=== PATIENT | male | born 1995 ===

== ENCOUNTER 2021-02-06 08:13 | Outpatient (CLI) | payer OTHER | END 2021-02-06 08:18 | disposition home or self-care (01) | LOC: RAD 08:13 | DX: Z00.00 Encounter for general adult medical examination without abnormal findings (principal) ==

== ENCOUNTER 2021-11-06 11:56 | Outpatient (CLI) | payer OTHER | END 2021-11-06 11:57 | disposition home or self-care (01) | LOC: RAD 11:56 | DX: M79.645 Pain in left finger(s) (principal) ==

== ENCOUNTER 2022-02-08 14:06 | Outpatient (CLI) | payer OTHER | END 2022-02-08 14:13 | disposition home or self-care (01) | LOC: RAD 14:06 | DX: Z00.00 Encounter for general adult medical examination without abnormal findings (principal) ==

== ENCOUNTER 2022-06-06 10:43 | Outpatient (CLI) | payer OTHER | END 2022-06-06 11:08 | disposition home or self-care (01) | LOC: RAD 10:43 | DX: M25.552 Pain in left hip (principal); M25.519 Pain in unspecified shoulder ==

== ENCOUNTER 2022-06-27 09:21 | Outpatient (CLI) | payer OTHER | END 2022-06-27 09:32 | disposition home or self-care (01) | LOC: RAD 09:21 | PROVIDERS: ATTEND Family Medicine | DX: S73.109A Unspecified sprain of unspecified hip, initial encounter (principal) ==

== ENCOUNTER 2022-09-19 09:34 | Outpatient (CLI) | payer OTHER | END 2022-09-19 09:38 | disposition home or self-care (01) | LOC: SONOGRAMA 09:34 | PROVIDERS: ATTEND Family Medicine | DX: S46.919A Strain of unspecified muscle, fascia and tendon at shoulder and upper arm level, unspecified arm, initial encounter (principal) ==

== ENCOUNTER 2023-01-15 08:54 | Outpatient (CLI) | payer OTHER | END 2023-01-15 09:01 | disposition home or self-care (01) | LOC: RAD 08:54 | DX: Z00.00 Encounter for general adult medical examination without abnormal findings (principal) ==

== ENCOUNTER 2023-07-25 14:24 | Outpatient (CLI) | payer OTHER | END 2023-07-25 14:37 | disposition home or self-care (01) | LOC: TOM 14:24 | PROVIDERS: ATTEND Family Medicine | DX: J31.0 Chronic rhinitis (principal) ==

== ENCOUNTER 2023-10-30 08:35 | Outpatient (CLI) | payer OTHER | END 2023-10-30 08:42 | disposition home or self-care (01) | LOC: SONOGRAMA 08:35 | DX: M25.512 Pain in left shoulder (principal) ==